=== PATIENT | male | born 1995 | race Caucasian/White ===

== ENCOUNTER 2018-10-09 12:55 | Emergency (ER) | payer OTHER ==
[~2018-10-09] VITALS: Wt 60.7 kg
[2018-10-09 13:09] VITALS: BP 132/94; PULSE 122; RESP 20
--- NOTE | 2018-10-09 13:45 | ERD ---
ER Documentation Chief Complaint Chief Complaint sharad hand and leg cramping p standing up x3 months also jaw clenching HPI 23-year-old male with no prior medical history presents with complaint of sensation of body tightening up when he stands up. States that this happens for about 10 seconds every time he stands up at work and then resolves spontaneously on its own. Patient does state that he has been more stressed out lately normal because he lost his house. States that work is stressful. Patient denies any fevers, chills, hematuria, discolored urine, muscle pain, history of trauma, history of infection or lacerations. Patient states that he is up-to-date on his vaccines, including tetanus. ROS All systems reviewed and are negative except as per history of present illness. Allergies Allergies: Coded Allergies: No Known Allergy (Unverified , 05/26/14) PMhx/Soc History of Surgery: No Anesthesia Reaction: No Hx Neurological Disorder: No Hx Respiratory Disorders: No Hx Cardiac Disorders: No Hx Psychiatric Problems: No Hx Miscellaneous Medical Probl: No Hx Alcohol Use: No Hx Substance Use: No Hx Tobacco Use: No Physical Exam Vitals Vital Signs Date Temp Pulse Resp B/P (MAP) Pulse Ox O2 O2 Flow FiO2 Time Delivery Rate 10/09/18 99.8 122 20 132/94 99 13:09 (107) Physical Exam Const: No acute distress Head: Atraumatic Eyes: Normal Conjunctiva ENT: Normal External Ears, Nose and Mouth. Neck: Full range of motion. No meningismus. Resp: Clear to auscultation bilaterally Cardio: Regular rate and rhythm, no murmurs Abd: Soft, non tender, non distended. Normal bowel sounds Skin: No petechiae or rashes Back: No midline or flank tenderness Ext: No cyanosis, or edema Neur: Awake and alert Psych: Normal Mood and Affect Neuro: M/S: Alert and oriented Face: EOMI, face and pharynx with normal sensation and function Motor: Normal strength throughout Sensation: Normal sensation throughout Speech: Normal Cerebel: Normal coordination Normal gait Normal finger to nose DTR: 2+ and symmetric upper/lower extremities Procedures/MDM MDM: Basic labs were performed to rule out electrolyte disorders as well as rhabdomyolysis. All results within normal limits. I advised patient that he see a neurologist to rule out some type of seizure disorder, although this is very unlikely given the patient's history. I also I advised patients that his symptoms may be Psychosomatic and he would benefit from possibly seeing a therapist, especially given the fact that he does admit to being more stressed out lately than normal. this time I have low suspicion for seizure disorder, i nfection, tetanus, intracranial bleed, rhabdomyolysis, electrolyte disorder, or any other emergent condition. At this time, patient is stable for discharge and outpatient management. I have instructed the patient to follow-up with his/her primary care physician in 1-2 days. I have discussed with the patient the possibility of needing to see a specialist for further workup and imaging studies if symptoms persist. I have instructed the patient to promptly return to the ER for any new or worsening symptoms including but not limited to increased pain, fever, nausea, vomiting, weakness or LOC. The patient and/or family expressed understanding of and agreement with this plan. All questions were answered. Home care instructions were provided. DISCLAIMER: Inadvertent spelling and grammatical errors are likely due to EHR/dictation software use and do not reflect on the overall quality of patient care. Also, please note that the electronic time recorded on this note does not necessarily reflect the actual time of the patient encounter. Departure Diagnosis: Primary Impression: Cramping of hands Condition: Stable BRANDEN MARTE Oct 09, 2018 13:45
== END 2018-10-09 15:15 | disposition home or self-care (01) ==
LOC: FTE 12:55
DX: M79.641 Pain in right hand (principal); M79.642 Pain in left hand
CPT/HCPCS: 80053; 82550; 85025; Z7502; 99283